=== PATIENT | male | born 1950 | race Caucasian/White ===

== ENCOUNTER 2017-11-06 12:37 | Emergency (ER) | payer MEDICARE, OTHER ==
[~2017-11-06] VITALS: Ht 188 cm; Wt 105.0 kg
[~2017-11-06 12:37] MED LIST: ATEN-100 PO; NEXI10GR PO; SIMV20 PO
[2017-11-06 12:39] VITALS: BP 159/84; PULSE 63; RESP 18; TEMP 98.6; O2SAT 98
[2017-11-06] MEDS ORDERED: FEXO15TA PO (12:59)
[2017-11-06] MEDS ORDERED: ATEN25TA PO (12:59)
[2017-11-06] MEDS ORDERED: SIMV20TA PO (12:59)
[2017-11-06] MEDS ORDERED: CEPH-460 PO (13:23)
--- NOTE | 2017-11-06 13:24 | PD ---
HPI Chief Complaint: Laceration/Skin Injury Time Seen by Provider: 12:48 Travel History International Travel<30 days: No Contact w/Intl Traveler<30days: No Traveled to known affect area: No History of Present Illness HPI 66-year-old male presents emergency department for evaluation of laceration to the thumb. States that he was removing dishes from the city [employer] when a piece of glass broke and cut his thumb. He denies any numbness or tingling. He denies any weakness. Patient is here because he wants to be sure that nothing else was injured. Says the pain is 5/10, worse with movement and palpation. He believes his last tetanus was less than 5 years ago. PFS Past Medical History Arthritis: No Asthma: No Autoimmune Disease: No Blood Disorders: No Heart Rhythm Problems: No Cancer: Yes (BASIL CELL CARCINOMA) Cardiovascular Problems: No High Cholesterol: Yes Chemotherapy: No Chest Pain: No Congestive Heart Failure: No COPD: No Cerebrovascular Accident: No Diabetes: No Diminished Hearing: No GERD: Yes Glaucoma: No Genitourinary: No Headaches: Yes Hepatitis: No Hiatal Hernia: No Hypertension: Yes Kidney Stones: No Musculoskeletal: Yes Neurologic: No Psychiatric: No Respiratory: No Myocardial Infarction: No Radiation Therapy: No Renal Failure: No Seizures: No Sickle Cell Disease: No Sleep Apnea: No Thyroid Disease: No Ulcer: No Tetanus Vaccination: < 5 Years Influenza Vaccination: Yes ?: Not Past Surgical History Abdominal Surgery: No AICD: No Cardiac Surgery: No Ear Surgery: No Endocrine Surgery: No Eye Surgery: No Genitourinary Surgery: No Gynecologic Surgery: No Oral Surgery: No Pacemaker: No Thoracic Surgery: No Other Surgery: Yes (left ACHILLES TENDON RELEASE) Family History Family Myocardial Infarction: Yes (OLDER BROTHER) Social History Alcohol Use: Yes (occas.) Tobacco Use: No Substance Use: No Allergies-Medications (Allergen,Severity, Reaction): Coded Allergies: No Known Allergies (Verified Adverse Reaction, Unknown, 11/06/17) Reported Meds & Prescriptions Reported Meds & Active Scripts Active Keflex (Cephalexin) 500 Mg Capsule 500 Mg PO TID 7 Days Reported Gabi Allergy (Fexofenadine HCl) 180 Mg Tab 180 Mg PO DAILY Simvastatin 20 Mg Tab 20 Mg PO DAILY Atenolol 25 Mg Tab 25 Mg PO DAILY Review of Systems Except as stated in HPI: all other systems reviewed are Neg Physical Exam Narrative GENERAL: Well-developed, well-nourished in no apparent distress SKIN: Focused skin assessment warm/dry. Left thumb base-1 cm avulsion type flap without tendon involvement. HEAD: Atraumatic. Normocephalic. EYES: Pupils equal and round. No scleral icterus. No injection or drainage. ENT: No nasal bleeding or discharge. Mucous membranes pink and moist. NECK: Trachea midline. No JVD. MUSCULOSKELETAL: No obvious deformities. No clubbing. No cyanosis. No edema. Grade 5/5 strength in thumb, neurovascularly intact NEUROLOGICAL: Awake and alert. No obvious cranial nerve deficits. Motor grossly within normal limits. Normal speech. PSYCHIATRIC: Appropriate mood and affect; insight and judgment normal. Data Data Last Documented VS Vital Signs Date Time Temp Pulse Resp B/P (MAP) Pulse Ox O2 Delivery O2 Flow Rate FiO2 11/06/17 12:39 98.6 63 18 159/84 (109) 98 MDM Medical Decision Making Medical Screen Exam Complete: Yes Emergency Medical Condition: Yes Differential Diagnosis Left thumb laceration, left thumb abrasion, left thumb avulsion Narrative Course 66-year-old male presents emergency department for evaluation of the left thumb laceration that occurred as he was attempting dishwashers. Says a piece of glass cut his thumb. Says he was able to irrigate this with tap water prior to arrival. He did not notice any foreign bodies. Left thumb grade 5/5 flexing and extension, neurovascularly intact. Copious irrigation performed. Laceration repair completed with 4 6-0 Prolene interrupted sutures. Keflex for prophylaxis. Patient will be discharged with wound care instructions. Suture removal in 7-10 days. Procedures Procedure Narrative LACERATION LOCATION: Left thumb base palmar aspect LENGTH: 1 cm NUMBER OF STITCHES/RAQUEL: 4 REPAIR: The area of the laceration was prepped with Betadine and sterilely draped. The laceration was infiltrated with 2% lidocaine without epinephrine. The wound was copiously irrigated and explored without evidence of foreign body, tendon injury or neurovascular injury. The wound was closed using 6-0 Prolene. This was a single layer repair. A sterile dressing was applied. The patient was advised to keep the dressing clean and dry. Patient tolerated the procedure well. Diagnosis Primary Impression: Laceration of thumb Qualified Codes: S61.012A - Laceration without foreign body of left thumb without damage to nail, initial encounter Referrals: Primary Care Physician Additional Instructions: Follow up with your primary care physician within 2-3 days. Keep area clean and dry for 24hrs. You may bathe as normal after 24 hrs but ensure the area stays clean and dry. Change dressings daily. If bleeding starts again, applied pressure and elevate the area. If he developed increased redness, swelling, or pain return to the emergency department. Suture removal in 7-10 days. Scripts Cephalexin (Keflex) 500 Mg Capsule 500 MG PO TID for Infection for 7 Days, CAP 0 Refills Prov: Miguel Angel Cedillo MD 11/06/17 Disposition: 01 DISCHARGE HOME Condition: Stable Melissa Hendrickson Nov 06, 2017 13:24
== END 2017-11-06 13:55 | disposition home or self-care (01) ==
LOC: PHEFT 12:37
DX: S61.012A Laceration without foreign body of left thumb without damage to nail, initial encounter (principal); E78.00 Pure hypercholesterolemia, unspecified; K21.9 Gastro-esophageal reflux disease without esophagitis; I10 Essential (primary) hypertension; W25.XXXA Contact with sharp glass, initial encounter; Y93.G1 Activity, food preparation and clean up; Y92.000 Kitchen of unspecified non-institutional (private) residence as the place of occurrence of the external cause
CPT/HCPCS: 12001